=== PATIENT | female | born 1975 | race Caucasian/White ===

== ENCOUNTER 2018-02-23 20:16 | Emergency (ER) | payer MEDICAID ==
[~2018-02-23] VITALS: Ht 152.4 cm; Wt 81.6 kg
[2018-02-23 20:30] VITALS: BP 118/74
--- NOTE | 2018-02-23 20:40 | NUR ---
TO LOBBY, A/W BED, EKG DONE, VSS AMB, ERMD NOTED
--- NOTE | 2018-02-23 20:58 | NUR ---
PT TO BED 9
--- NOTE | 2018-02-23 20:58 | NUR ---
42/F CAME IN W C/O RT FACIAL NUMBNESS X 1400. RT FACIAL DROOP NOTED, TONGUE MIDLINE. STEVEN TOLL [employer] EQUAL AND STRONG. PT AMBULATORY. ALSO C/O NUMBNESS/TINGLING TO HER LEFT SOLE FOOT, DENIES TRAUMA/INJURY. PMH: [id number]
--- NOTE | 2018-02-23 21:27 | NUR ---
Dr. Loomis evaluating patient at bedside.
[2018-02-23] MEDS ORDERED: KETOROLAC 60 MG/2 ML VIAL IM ONE (21:50)
[2018-02-23] MEDS ORDERED: methylPREDNISolone SS 125 MG/2 ML VIAL IM ONE (21:50)
--- NOTE | 2018-02-23 21:50 | NUR ---
X-Ray at bedside.
[2018-02-23 22:24] VITALS: BP 123/76
--- NOTE | 2018-02-23 22:24 | NUR ---
Patient discharged with v/s stable. Written and verbal after care instructions given and explained. Patient alert, oriented and verbalized understanding of instructions. Ambulatory with steady gait. All questions addressed prior to discharge. ID band removed. Patient advised to follow up with PMD. Rx of MOTRIN, PREDNISONE, ACYCLOVIR given. Patient educated on indication of medication including possible reaction and side effects. Opportunity to ask questions provided and answered.
== END 2018-02-23 22:24 | disposition home or self-care (01) ==
LOC: MED 20:16
DX: G51.0 Bell's palsy (principal); M72.2 Plantar fascial fibromatosis; E78.5 Hyperlipidemia, unspecified
CPT/HCPCS: 71045; 73630; 93005; 96372; 99284; J1885; J2930; Q0092